=== PATIENT | male | born 1970 | race Two or more races ===

== ENCOUNTER 2023-05-27 13:35 | Inpatient (IN) ==
--- NOTE | 2023-05-27 14:00 | ED Triage Note ---
Date of Service May 27, 2023 History of Present Illness This patient was briefly evaluated while in triage. An abbreviated physical exam was performed. This patient is a 52-year-old Male who presents to the ED for evaluation of abd pain. Started saturday. Recent ct scan of abd/pelvis x 2. Tx for diverticulitis now. Physical Exam GENERAL: 52 year old male. In no acute distress. SKIN: No lesions or rashes. HEART: Regular rate and rhythm. LUNGS: Clear to auscultation. ABDOMEN: Bowel sounds normoactive. No guarding or rigidity. Lower abd ttp noted. MUSCULOSKELETAL: No deformities to inspection of the extremities. PSYCH: Patient is pleasant and answers all questions appropriately. Initial orders for labs and / or imaging were placed and patient was placed in the waiting area until a bed is available. Please see further documentation for the full ED course.
--- NOTE | 2023-05-27 15:41 | XRay Report ---
KUB CLINICAL HISTORY: Generalized abdominal pain. FINDINGS: 2 AP supine abdominal radiographs are obtained. No prior studies are available for comparis on at the time of dictation. Cholecystectomy clips are seen in the right upper quadrant. There is a n onobstructed abdominal bowel gas pattern. No evidence of intraperitoneal free air is seen on these [place] images. There are no abnormal abdominal calcifications. Coarse calcifications are noted in the p rostate. The bony structures appear intact. IMPRESSION: No acute abnormality is identified. Electronically signed by: Ricco Ott M.D. 05/27/2023 3:40 PM
[2023-05-27 15:47] LABS: Basophils # (auto) 0.04 K/uL (0-0.2); Basophils % (auto) 0.7 %; Eosinophils # (auto) 0.18 K/uL (0-0.50); Eosinophils % (auto) 3.3 %; Hematocrit (blood only) 41.8 % (42.0-52.0); Hemoglobin 15.3 g/dl (14.0-18.0); Immature Granulocytes # (auto) 0.01 K/uL (0.01-0.20); Immature Granulocytes % (auto) 0.2 %; Lymphocytes # (auto) 2.23 K/uL (1.2-3.4); Lymphocytes % (auto) 40.9 %; Mean Corpuscular Hemoglobin 31.8 pg (25.0-34.0); Mean Corpuscular Hgb Conc 36.6 g/dL (32.0-36.0); Mean Corpuscular Volume 86.9 fL (80.0-100.0); Mean Platelet Volume 10.1 fL (9.4-12.4); Monocytes % (auto) 12.8 %; Neutrophils # (auto) 2.29 K/uL (1.40-6.50); Neutrophils % (auto) 42.1 %; Platelet Count 178 K/uL (130-400); RDW Coefficient of Variation 11.5 % (11.5-14.5); RDW Standard Deviation 36.1 fL (36.4-46.3); Red Blood Count 4.81 M/uL (4.70-6.10); White Blood Count 5.45 K/ul (4.8-10.8)
[2023-05-27 16:07] LABS: Albumin Globulin Ratio 1.7 (0.9-2); BUN Creatinine Ratio 10.6 (10-20); Bilirubin,Total 1.3 mg/dl (0.2-1.0); Calcium 9.6 mg/dl (8.6-10.3); Creatinine Clr Calc Pharmacy 98.3 ml/min; Est GFR (African American) 109.1 ml/min; Est GFR (Non-African American) 94.2 ml/min
--- NOTE | 2023-05-27 19:42 | Emergency Department Note ---
Impression & Plan Acute diverticulitis ED Provider Note HISTORY OF PRESENT ILLNESS: Patient is a 52-year-old male presenting with suprapubic and left lower quadrant abdominal pain. Patient reports pain has been ongoing and intermittent for the last 6 months. He was diagnosed with diverticulitis twice in that timeframe and also diagnosed with C. difficile. He reports he is on day 7 of his second course of Augmentin. He states that 3 days ago he developed subjective fevers and chills at home and significantly worsening abdominal pain. He denies any nausea. Reports diarrhea for the last 6 months. Denies any dysuria or hematuria. Denies any nausea or vomiting. ROS: as above PHYSICAL EXAM: Constitutional: Patient appears in no acute distress. HENT: Head: Normocephalic and atraumatic. Eyes: EOMI, PERRL Mouth/Throat: Mucous membranes moist. Neck: Trachea midline. Neck supple. Cardiovascular: RRR, No murmurs, rubs or gallops. Intact distal pulses. Pulmonary/Chest: No respiratory distress. Breath sounds clear and equal bilaterally. No wheezes or rales. Abdominal: Abdomen soft, no rebound or guarding. Suprapubic and left lower quadrant tenderness to palpation Musculoskeletal: No edema, tenderness or deformity noted. Skin: Warm and dry. No rash, erythema, pallor or cyanosis Psychiatric: Appropriate mood and affect for situation. Neurological: Alert and keenly responsive. CN II-XII grossly intact, moving all extremities equally and fully. MDM: - Vitals signs stable. - History obtained via patient. Patient presents with suprapubic and left lower quadrant abdominal pain. Patient reports symptoms have been ongoing and intermittent for the last 6 months. He has been diagnosed with acute diverticulitis twice in that timeframe and also diagnosed with C. difficile. He reports he is currently on day 7 of his second course of Augmentin for diverticulitis. He reports 3 days ago he developed subjective fevers and chills at home and developed significantly worsening abdominal pain that is continued over the last 3 days. He reports diarrhea for the last 6 months. Denies any nausea or vomiting - Chronic conditions affecting care: HTN; recurrent diverticulitis - Differential diagnoses include, but are not limited to: diverticulitis; ureteral calculi; UTI; electrolyte abnormality - Order placed for continuous cardiac monitoring. At this time, monitor showed rate of 62 bpm with normal sinus rhythm, per my interpretation. - External medical records reviewed. - Laboratory workup interpreted by myself showed normal WBC; stable electrolytes; normal procalcitonin - CT abdomen/pelvis with IV contrast showed acute diverticulitis - KUB obtained via triage protocols was negative for acute pathology. - Patient has been on oral antibiotics for the last 7 days and still having evidence of diverticulitis, he likely has failed outpatient antibiotic therapy at this time - 1L NS, IV cipro and flagly ordered. - Discussion was had with social service technician about patient's need for admission for observation - Hospitalist, Dr. Mcclure, consulted for admission - [facility] and [facility]. ASSESSMENT AND PLAN: Diagnosis: acute diverticulitis Plan: admit Past Med/Surg History Medical History C. difficile diarrhea Diverticulitis Fatty liver GERD (gastroesophageal reflux disease) Hearing loss Hepatic steatosis HTN (hypertension) Thyroid nodule Surgical History History of rectal polypectomy Hx of cholecystectomy Hx of tonsillectomy S/P rotator cuff repair Family History Denies family history of Crohn's disease Colorectal cancer Ulcerative colitis Social History (Updated 05/20/23 @ 13:36 by MARCIAL Raines) Smoking Status: Never smoker Do You Dip or Chew Tobacco: No; Hx Alcohol Use: No Hx Substance Use: No Preferred Language: Nepalese Communication Ability: Effective Visual Impairment: No Limitations Hearing Ability: Normal marital status: Feels Safe at Home: Yes Allergies Allergies Allergy/AdvReac Type Severity Reaction Status Date / Time No Known Allergies Allergy Verified 05/20/23 08:52 Home Meds Home Medications Medication Instructions Recorded Confirmed bisoprolol fumarate 5 mg tablet 5 mg PO DAILY 05/16/23 05/27/23 lisinopril 10 mg tablet 10 mg PO DAILY 05/16/23 05/27/23 Results & Data (ED) Vital Signs Vital Signs - 24 hr 05/27/23 13:52 05/27/23 20:15 Temperature 36.4 C L Temperature Source Temporal Artery Scan Pulse Rate 61 Pulse Rate [Apical] 60 Pulse Rhythm Regular Respiratory Rate 20 16 Respiratory Effort / Characteristics Non-Labored Spontaneous Respiratory Depth Normal Blood Pressure 120/86 Blood Pressure [Right Arm] 159/92 H Blood Pressure Mean 97 Blood Pressure Mean [Right Arm] 114 Pulse Oximetry 98 96 Oxygen Delivery Method Room Air Sepsis Recent Fever Within 48 Hours No Sepsis New/Unexplained Change in Mental Status No Sepsis Action Taken by Nursing No Action Required Laboratory Data 05/27/23 13:57 05/27/23 13:57 Lab Results 05/27/23 05/27/23 05/27/23 Range/Units 13:57 13:57 13:57 WBC 5.45 (4.8-10.8) K/ul RBC 4.81 (4.70-6.10) M/uL Hgb 15.3 (14.0-18.0) g/dl Hct 41.8 L (42.0-52.0) % MCV 86.9 (80.0-100.0) fL MCH 31.8 (25.0-34.0) pg MCHC 36.6 H (32.0-36.0) g/dL RDW Std Deviation 36.1 L (36.4-46.3) fL RDW Coeff of Meri 11.5 (11.5-14.5) % Plt Count 178 (130-400) K/uL MPV 10.1 (9.4-12.4) fL Immature Gran % (Auto) 0.2 % Neut % (Auto) 42.1 % Lymph % (Auto) 40.9 % Bound[place] % (Auto) 12.8 % Eos % (Auto) 3.3 % Baso % (Auto) 0.7 % Neut # (Auto) 2.29 (1.40-6.50) K/uL Lymph # (Auto) 2.23 (1.2-3.4) K/uL [place] # (Auto) 0.70 H (0.11-0.59) K/uL Eos # (Auto) 0.18 (0-0.50) K/uL Baso # (Auto) 0.04 (0-0.2) K/uL Immature Gran # (Auto) 0.01 (0.01-0.20) K/uL Sodium 138 (136-145) mmol/L Potassium 4.0 (3.5-5.1) mmol/L Chloride 104 (98-107) mmol/L Carbon Dioxide 26 (21-32) mmol/L Anion Gap 8 (3-11) BUN 10 (6-23) mg/dl Creatinine 0.94 (0.6-1.4) mg/dl Est Cr Clr Drug Dosing 98.3 ml/min Est GFR ( Amer) 109.1 ml/min Est GFR (Non-Af Amer) 94.2 ml/min BUN/Creatinine Ratio 10.6 (10-20) Glucose 85 (70-99(Fasting)) mg/dl Lactate 1.3 (0.4-2.0) mmol/L Calcium 9.6 (8.6-10.3) mg/dl Total Bilirubin 1.3 H (0.2-1.0) mg/dl AST 34 (13-39) U/L ALT 64 H (7-52) U/L Alkaline Phosphatase 30 L (34-104) U/L Total Protein 8.0 (6.0-8.3) gm/dl Albumin 5.0 (3.4-5.0) gm/dl Globulin 3.0 (2.5-4.0) gm/dl Albumin/Globulin Ratio 1.7 (0.9-2) Lipase 72 (11-82) U/L Procalcitonin (0-0.5) ng/ml 05/27/23 Range/Units 13:57 WBC (4.8-10.8) K/ul RBC (4.70-6.10) M/uL Hgb (14.0-18.0) g/dl Hct (42.0-52.0) % MCV (80.0-100.0) fL MCH (25.0-34.0) pg MCHC (32.0-36.0) g/dL RDW Std Deviation (36.4-46.3) fL RDW Coeff of Meri (11.5-14.5) % Plt Count (130-400) K/uL MPV (9.4-12.4) fL Immature Gran % (Auto) % Neut % (Auto) % Lymph % (Auto) % [place] % (Auto) % Eos % (Auto) % Baso % (Auto) % Neut # (Auto) (1.40-6.50) K/uL Lymph # (Auto) (1.2-3.4) K/uL [place] # (Auto) (0.11-0.59) K/uL Eos # (Auto) (0-0.50) K/uL Baso # (Auto) (0-0.2) K/uL Immature Gran # (Auto) (0.01-0.20) K/uL Sodium (136-145) mmol/L Potassium (3.5-5.1) mmol/L Chloride (98-107) mmol/L Carbon Dioxide (21-32) mmol/L Anion Gap (3-11) BUN (6-23) mg/dl Creatinine (0.6-1.4) mg/dl Est Cr Clr Drug Dosing ml/min Est GFR ( Amer) ml/min Est GFR (Non-Af Amer) ml/min BUN/Creatinine Ratio (10-20) Glucose (70-99(Fasting)) mg/dl Lactate (0.4-2.0) mmol/L Calcium (8.6-10.3) mg/dl Total Bilirubin (0.2-1.0) mg/dl AST (13-39) U/L ALT (7-52) U/L Alkaline Phosphatase (34-104) U/L Total Protein (6.0-8.3) gm/dl Albumin (3.4-5.0) gm/dl Globulin (2.5-4.0) gm/dl Albumin/Globulin Ratio (0.9-2) Lipase (11-82) U/L Procalcitonin 0.20 (0-0.5) ng/ml Administered Medications Discontinued Medications Ioversol (Optiray 320 100ml) 93 ml IV ONCE ONE Stop: 05/27/23 19:50 Last Admin: 05/27/23 19:50 Dose: 93 ml Documented By: CHIVO Imaging Data Radiologist's Impression: KUB X-Ray 05/27/23 13:57 KUB CLINICAL HISTORY: Generalized abdominal pain. FINDINGS: 2 AP supine abdominal radiographs are obtained. No prior studies are available for comparison at the time of dictation. Cholecystectomy clips are seen in the right upper quadrant. There is a nonobstructed abdominal bowel gas pattern. No evidence of intraperitoneal free air is seen on these supine images. There are no abnormal abdominal calcifications. Coarse calcifications are noted in the prostate. The bony structures appear intact. IMPRESSION: No acute abnormality is identified. Electronically signed by: Ricco Ott M.D. 05/27/2023 3:40 PM Abdomen/Pelvis CT 05/27/23 17:59 Exam(s): CT ABDOMEN + PELVIS With Contrast IV Amt: 93ml optiray 320 EXAM: CT Abdomen and Pelvis With Intravenous Contrast CLINICAL HISTORY: Reason for exam: LLQ abdominal pain. TECHNIQUE: Axial computed tomography images of the abdomen and pelvis with intravenous contrast. CTDI is 24.65 mGy and DLP is 1313.85 mGy-cm. Automated exposure control was utilized for the study. A dose lowering technique was utilized adhering to the principles of ALARA. CONTRAST: Patient received 93ml optiray 320 of IV contrast COMPARISON: None. FINDINGS: Lung bases: Unremarkable. No mass. No consolidation. ABDOMEN: Liver: Hepatic steatosis. Hypodensity in the caudate lobe of the liver likely represents a cyst. Gallbladder and bile ducts: Cholecystectomy. No ductal dilation. Pancreas: Unremarkable. No mass. No ductal dilation. Spleen: Unremarkable. No splenomegaly. Adrenals: Unremarkable. No mass. Kidneys and ureters: Unremarkable. No solid mass. No hydronephrosis. Stomach and bowel: Acute diverticulitis of the sigmoid colon. Fluid- filled colon. No obstruction. PELVIS: Appendix: No findings to suggest acute appendicitis. Bladder: Unremarkable. No mass. Reproductive: Enlarged prostate gland. ABDOMEN and PELVIS: Intraperitoneal space: Unremarkable. No free air. No significant fluid collection. Bones/joints: Congenitally short pedicles and superimposed degenerative change of the spine. No acute fracture. No dislocation. Soft tissues: Fat-containing right inguinal hernia. Vasculature: Atherosclerotic calcification of the abdominal aorta. No abdominal aortic aneurysm. Lymph nodes: Unremarkable. No enlarged lymph nodes. IMPRESSION: 1. Acute diverticulitis of the sigmoid colon. No perforation or abscess. 2. Hepatic steatosis. Electronically signed by: Julian López MD 05/27/23 20:16 PM Discharge Plan Visit Data Chief Complaint: GI Assessment Stated Complaint: GI ISSUE ED Provider: Nemo Lopez Discharge Problem: Acute diverticulitis Forms Stand Alone Forms: [email or web address] Prescriptions Prescriptions: No Action bisoprolol fumarate 5 mg tablet 5 mg PO DAILY lisinopril 10 mg tablet 10 mg PO DAILY Referrals Referrals: Tess Matthews CRNP [Primary Care Provider] -
[2023-05-27] MEDS ORDERED: OPTIRAY 320 100ml IV ONE (19:49)
--- NOTE | 2023-05-27 20:16 | CT Scan Report ---
Exam(s): CT ABDOMEN + PELVIS With Contrast IV Amt: 93ml optiray 320 EXAM: CT Abdomen and Pelvis With Intravenous Contrast CLINICAL HISTORY: Reason for exam: LLQ abdominal pain. TECHNIQUE: Axial computed tomography images of the abdomen and pelvis with intravenous contrast. CTDI is 24.65 mGy and DLP is 1313.85 mGy-cm. Automated exposure control was utilized for the study. A dose lowering technique was utilized adhering to the principles of ALARA. CONTRAST: Patient received 93ml optiray 320 of IV contrast COMPARISON: None. FINDINGS: Lung bases: Unremarkable. No mass. No consolidation. ABDOMEN: Liver: Hepatic steatosis. Hypodensity in the caudate lobe of the liver likely represents a cyst. Gallbladder and bile ducts: Cholecystectomy. No ductal dilation. Pancreas: Unremarkable. No mass. No ductal dilation. Spleen: Unremarkable. No splenomegaly. Adrenals: Unremarkable. No mass. Kidneys and ureters: Unremarkable. No solid mass. No hydronephrosis. Stomach and bowel: Acute diverticulitis of the sigmoid colon. Fluid- filled colon. No obstruction. PELVIS: Appendix: No findings to suggest acute appendicitis. Bladder: Unremarkable. No mass. Reproductive: Enlarged prostate gland. ABDOMEN and PELVIS: Intraperitoneal space: Unremarkable. No free air. No significant fluid collection. Bones/joints: Congenitally short pedicles and superimposed degenerative change of the spine. No acute fracture. No dislocation. Soft tissues: Fat-containing right inguinal hernia. Vasculature: Atherosclerotic calcification of the abdominal aorta. No abdominal aortic aneurysm. Lymph nodes: Unremarkable. No enlarged lymph nodes. IMPRESSION: 1. Acute diverticulitis of the sigmoid colon. No perforation or abscess. 2. Hepatic steatosis. Electronically signed by: Julian López MD 05/27/23 20:16 PM
[2023-05-27] MEDS ORDERED: SODIUM CHLORIDE 0.9% 1000ML 1,000 ML IV ONE (23:03)
[2023-05-27] MEDS ORDERED: metroNIDAZOLE 500 MG/100 ML BAG IV STA (23:04)
[2023-05-27] MEDS ORDERED: CIPROFLOXACIN / D5W 400 MG/200 ML BAG IV STA (23:04)
[2023-05-27] MEDS ORDERED: fentaNYL citrate PF 100 MCG/2 ML VIAL IV STA (23:50)
--- NOTE | 2023-05-28 00:04 | History & Physical Report ---
Date of Service May 27, 2023 Assessment & Plan (1) Acute diverticulitis: Plan: 52-year-old male with past med significant for hypertension, recurrent diverticulitis, history of C. difficile ongoing diarrhea for last 6 months presents with abdominal pain and found to have acute diverticulitis. Recurrent diverticulitis Started IV Cipro and Flagyl IV fluids IV antiemetics and IV pain medications as needed N.p.o. for now Consult surgery in a.m. Diarrhea Going on for last 6 months Had 2 courses of p.o. vancomycin as stool studies showed C Diff gene positive and toxin negative but did not help his diarrhea Stool studies are ordered in the ER we will follow GI consulted Hypertension Continue home medications DVT prophylaxis Lovenox for now Disposition medical floor Full code History of Present Illness Chief Complaint: Abdominal pain and diarrhea Primary Care Provider: MARCIAL Slade 52-year-old male with past med significant for hypertension, recurrent diverticulitis, history of C. difficile ongoing diarrhea for last 6 months presents with abdominal pain and found to have acute diverticulitis. Patient states 2 and half years ago was first diagnosed with diverticulitis and was treated. After that he had a colonoscopy and a polyp was taken out. States again last 6 months developed abdominal pain and diarrhea. Last December had laparoscopic cholecystectomy. Looks like in February he had a course of Cipro and Flagyl for diverticulitis but continued to have diarrhea. Looks like he was found to have C. difficile gene positive but toxin negative and had a couple of course of p.o. vancomycin. But it did not help his diarrhea. Recently in May 20 he saw GI for his abdominal pain and he was started on p.o. Augmentin for possible diverticulitis. He took 1 week of Augmentin so far but still in significant abdominal pain and diarrhea is not getting better so he came here. Denies any fevers. Once in a while he sees some blood in the stools. Normal micturition. No chest pain or shortness of breath. Has nausea. No headache. Somewhat hard of hearing. No runny nose or sore throat or cough. No dysphagia. Currently resting comfortably and hemodynamically stable. Past medical history as mentioned above Past surgical history multiple bilateral shoulder surgeries, tonsillectomy and cholecystectomy Social history denies smoking alcohol or drugs. Family history father had bladder cancer, sister has breast cancer Allergies Allergy/AdvReac Type Severity Reaction Status Date / Time No Known Allergies Allergy Verified 05/20/23 08:52 Home Medications Medication Instructions Recorded Confirmed Type bisoprolol fumarate 5 mg tablet 5 mg PO DAILY 05/16/23 05/27/23 History lisinopril 10 mg tablet 10 mg PO DAILY 05/16/23 05/27/23 History Past Med/Surg History Medical History C. difficile diarrhea Diverticulitis Fatty liver GERD (gastroesophageal reflux disease) Hearing loss Hepatic steatosis HTN (hypertension) Thyroid nodule Surgical History History of rectal polypectomy Hx of cholecystectomy Hx of tonsillectomy S/P rotator cuff repair Family History Denies family history of Crohn's disease Colorectal cancer Ulcerative colitis Social History Smoking Status: Never smoker Do You Dip or Chew Tobacco: No; Hx Alcohol Use: No Hx Substance Use: No Preferred Language: Albanian Communication Ability: Effective Visual Impairment: No Limitations Hearing Ability: Normal marital status: Feels Safe at Home: Yes Review of Systems Review of Systems: All systems reviewed & are unremarkable except as noted in HPI & below Physical Exam Physical Exam: General- Not in distress. Head- atraumatic Eyes- PERRL,. ENT- oropharynx clear Neck- supple, no JVD. Lungs- clear to auscultation no wheezing or crackles Heart- regular rate and rhythm; no murmur, no gallop. Abdomen- normal bowel sounds, soft, tenderness in periumbilical and llq region no guarding or rigidity. no distension. Extremities- no pretibial edema, no erythema seen. Neuro- alert, oriented x 3; PERRL, no facial palsy; no dysarthria;non focal Results & Data Results & Data Vital Signs (Past 12 Hours) Vital Signs Temp Pulse Pulse Resp BP BP Pulse Ox 05/27/23 20:15 60 16 159/92 H 96 05/27/23 13:52 36.4 C L 61 20 120/86 98 O2 Del Method 05/27/23 20:15 05/27/23 13:52 Room Air Diagnostic Findings Laboratory Results WBC 5.45 K/ul (4.8-10.8) 05/27/23 13:57 RBC 4.81 M/uL (4.70-6.10) 05/27/23 13:57 Hgb 15.3 g/dl (14.0-18.0) 05/27/23 13:57 Hct 41.8 % (42.0-52.0) L 05/27/23 13:57 MCV 86.9 fL (80.0-100.0) 05/27/23 13:57 MCH 31.8 pg (25.0-34.0) 05/27/23 13:57 MCHC 36.6 g/dL (32.0-36.0) H 05/27/23 13:57 RDW Std Deviation 36.1 fL (36.4-46.3) L 05/27/23 13:57 RDW Coeff of Meri 11.5 % (11.5-14.5) 05/27/23 13:57 Plt Count 178 K/uL (130-400) 05/27/23 13:57 MPV 10.1 fL (9.4-12.4) 05/27/23 13:57 Immature Gran % (Auto) 0.2 % 05/27/23 13:57 Neut % (Auto) 42.1 % 05/27/23 13:57 Lymph % (Auto) 40.9 % 05/27/23 13:57 [place] % (Auto) 12.8 % 05/27/23 13:57 Eos % (Auto) 3.3 % 05/27/23 13:57 Baso % (Auto) 0.7 % 05/27/23 13:57 Neut # (Auto) 2.29 K/uL (1.40-6.50) 05/27/23 13:57 Lymph # (Auto) 2.23 K/uL (1.2-3.4) 05/27/23 13:57 [place] # (Auto) 0.70 K/uL (0.11-0.59) H 05/27/23 13:57 Eos # (Auto) 0.18 K/uL (0-0.50) 05/27/23 13:57 Baso # (Auto) 0.04 K/uL (0-0.2) 05/27/23 13:57 Immature Gran # (Auto) 0.01 K/uL (0.01-0.20) 05/27/23 13:57 Sodium 138 mmol/L (136-145) 05/27/23 13:57 Potassium 4.0 mmol/L (3.5-5.1) 05/27/23 13:57 Chloride 104 mmol/L (98-107) 05/27/23 13:57 Carbon Dioxide 26 mmol/L (21-32) 05/27/23 13:57 Anion Gap 8 (3-11) 05/27/23 13:57 BUN 10 mg/dl (6-23) 05/27/23 13:57 Creatinine 0.94 mg/dl (0.6-1.4) 05/27/23 13:57 Est Cr Clr Drug Dosing 98.3 ml/min 05/27/23 13:57 Est GFR ( Amer) 109.1 ml/min 05/27/23 13:57 Est GFR (Non-Af Amer) 94.2 ml/min 05/27/23 13:57 BUN/Creatinine Ratio 10.6 (10-20) 05/27/23 13:57 Glucose 85 mg/dl (70-99(Fasting)) 05/27/23 13:57 Lactate 1.3 mmol/L (0.4-2.0) 05/27/23 13:57 Calcium 9.6 mg/dl (8.6-10.3) 05/27/23 13:57 Total Bilirubin 1.3 mg/dl (0.2-1.0) H 05/27/23 13:57 AST 34 U/L (13-39) 05/27/23 13:57 ALT 64 U/L (7-52) H 05/27/23 13:57 Alkaline Phosphatase 30 U/L (34-104) L 05/27/23 13:57 Total Protein 8.0 gm/dl (6.0-8.3) 05/27/23 13:57 Albumin 5.0 gm/dl (3.4-5.0) 05/27/23 13:57 Globulin 3.0 gm/dl (2.5-4.0) 05/27/23 13:57 Albumin/Globulin Ratio 1.7 (0.9-2) 05/27/23 13:57 Lipase 72 U/L (11-82) 05/27/23 13:57 Procalcitonin 0.20 ng/ml (0-0.5) 05/27/23 13:57 Impressions KUB X-Ray 05/27/23 13:57 KUB CLINICAL HISTORY: Generalized abdominal pain. FINDINGS: 2 AP supine abdominal radiographs are obtained. No prior studies are available for comparison at the time of dictation. Cholecystectomy clips are seen in the right upper quadrant. There is a nonobstructed abdominal bowel gas pattern. No evidence of intraperitoneal free air is seen on these supine images. There are no abnormal abdominal calcifications. Coarse calcifications are noted in the prostate. The bony structures appear intact. IMPRESSION: No acute abnormality is identified. Electronically signed by: Ricco Ott M.D. 05/27/2023 3:40 PM Abdomen/Pelvis CT 05/27/23 17:59 Exam(s): CT ABDOMEN + PELVIS With Contrast IV Amt: 93ml optiray 320 EXAM: CT Abdomen and Pelvis With Intravenous Contrast CLINICAL HISTORY: Reason for exam: LLQ abdominal pain. TECHNIQUE: Axial computed tomography images of the abdomen and pelvis with intravenous contrast. CTDI is 24.65 mGy and DLP is 1313.85 mGy-cm. Automated exposure control was utilized for the study. A dose lowering technique was utilized adhering to the principles of ALARA. CONTRAST: Patient received 93ml optiray 320 of IV contrast COMPARISON: None. FINDINGS: Lung bases: Unremarkable. No mass. No consolidation. ABDOMEN: Liver: Hepatic steatosis. Hypodensity in the caudate lobe of the liver likely represents a cyst. Gallbladder and bile ducts: Cholecystectomy. No ductal dilation. Pancreas: Unremarkable. No mass. No ductal dilation. Spleen: Unremarkable. No splenomegaly. Adrenals: Unremarkable. No mass. Kidneys and ureters: Unremarkable. No solid mass. No hydronephrosis. Stomach and bowel: Acute diverticulitis of the sigmoid colon. Fluid- filled colon. No obstruction. PELVIS: Appendix: No findings to suggest acute appendicitis. Bladder: Unremarkable. No mass. Reproductive: Enlarged prostate gland. ABDOMEN and PELVIS: Intraperitoneal space: Unremarkable. No free air. No significant fluid collection. Bones/joints: Congenitally short pedicles and superimposed degenerative change of the spine. No acute fracture. No dislocation. Soft tissues: Fat-containing right inguinal hernia. Vasculature: Atherosclerotic calcification of the abdominal aorta. No abdominal aortic aneurysm. Lymph nodes: Unremarkable. No enlarged lymph nodes. IMPRESSION: 1. Acute diverticulitis of the sigmoid colon. No perforation or abscess. 2. Hepatic steatosis. Electronically signed by: Julian López MD 05/27/23 20:16 PM Code Status & VTE Plan VTE Prophylaxis Plan VTE Prophylaxis will be ordered: Yes
--- NOTE | 2023-05-28 00:35 | Surgery Consultation ---
Date of Consultation May 28, 2023 Assessment & Plan (1) Acute diverticulitis: Patient has been admitted on the hospitalist service. We recommend proceeding as follows: Provide analgesics Provide antiemetics Implement n.p.o. status Provide IV fluid for hydration Antibiotics have been initiated in the form of Cipro and Flagyl. This should continue Follow serial labs Had a lengthy discussion with the patient. At the present time he is nontoxic-appearing. He is normotensive without tachycardia or fever. He also does not have any leukocytosis or evidence of acute kidney injury. There is no evidence of perforation or abscess on his CAT scan. Therefore do not feel he requires any type of emergent operation. I did discuss with the patient that if he would have clinical deterioration necessitating emergency operation this would likely necessitate a colostomy. I also discussed with the patient that if he would require any type of elective surgery would be preferable for patient to have an up-to-date colonoscopy as well as an appropriate bowel prep before any surgical intervention is undertaken. If patient fails to show any clinical improvement in the next several days consideration can be given to repeating a CT scan of his abdomen and pelvis Additional recommendations were forthcoming based on his clinical course as unfolds Supervising Physician Co-Signing Physician Notes I have seen and examined this patient and I agree with this plan. History of Present Illness Reason for Consultation: Diverticulitis History of Present Illness This is a 52-year-old male who has a history of recurrent diverticulitis. Patient says that he was first diagnosed with this problem in 2020. Patient said that he was seen in the emergency department but did not require inpatient admission and was treated with antibiotics. Following this episode the patient did undergo a colonoscopy where the patient was told that they removed a polyp. He had an additional flare of diverticulitis in 2021 again being seen in the emergency department but not requiring hospitalization. The patient had another episode of diverticulitis in January 2023 that was treated with antibiotics. He said he improved but continued to have some GI issues and he eventually had his gallbladder taken out he believes in February of this year. He subsequent developed C. difficile infection that was treated with 2 courses of vancomycin. Patient again began having abdominal pain approximately 1 week ago and he was seen by [facility] physician gastroenterology. It was felt that the patient was again suffering from diverticulitis with the patient was treated with antibiotics in the form of oral Augmentin. Plans were tentatively put in place for patient undergo colonoscopy in approximately 6 weeks. Patient does note that he has been trying to adjust his diet eating mostly soups. Despite being treated with antibiotics he continues to have abdominal pain. He notes that for approximately the past 4 days he has had worsening abdominal pain. He reports nausea without vomiting. He has not had any fevers, shakes, or chills. He does note that the pain is across his lower abdomen greatest in the left lower quadrant. He does not note any radiation of the pain and he denies any modifying factors. Patient has had labs and imaging which independent reviewed. A KUB was performed that showed no acute abnormalities identified. Patient also underwent a CT scan of the abdomen and pelvis. This showed the patient had acute diverticulitis of the sigmoid colon. There is no evidence of perforation or abscess on the study. Labs include a CBC her white blood cell count and hemoglobin were normal. The hematocrit was slightly low at 41.8. Platelet count was noted to be normal. Chemistry profile showed sodium, potassium, BUN, creatinine were normal. Lactic acid level was nonelevated. Patient did have slight elevation of the total bilirubin at 1.3. His ALT and alkaline phosphatase were also slightly elevated at 64 and 30 respectively. His AST was noted to be nonelevated. Patient's lipase was nonelevated and procalcitonin was nonelevated. At the time of my interview the patient was resting comfortably in bed and he was in no distress Allergies Allergy/AdvReac Type Severity Reaction Status Date / Time No Known Allergies Allergy Verified 05/20/23 08:52 Home Medications Medication Instructions Recorded Confirmed Type bisoprolol fumarate 5 mg tablet 5 mg PO DAILY 05/16/23 05/27/23 History lisinopril 10 mg tablet 10 mg PO DAILY 05/16/23 05/27/23 History Patient History Medical History C. difficile diarrhea Diverticulitis Fatty liver GERD (gastroesophageal reflux disease) Hearing loss Hepatic steatosis HTN (hypertension) Thyroid nodule Surgical History History of rectal polypectomy Hx of cholecystectomy Hx of tonsillectomy S/P rotator cuff repair Family History Denies family history of Crohn's disease Colorectal cancer Ulcerative colitis Social History Smoking Status: Never smoker Do You Dip or Chew Tobacco: No; Hx Alcohol Use: No Hx Substance Use: No Preferred Language: French Communication Ability: Effective Visual Impairment: No Limitations Hearing Ability: Normal Ux Developer Required: No Beliefs That Will Affect Care: None marital status: Current Living Situation: Spouse Feels Safe at Home: Yes Assistive Devices: None Review of Systems Constitutional: no fever and no chills Ear, Nose, Mouth, Throat: no hearing loss Respiratory: no cough and no dyspnea Cardiovascular: no chest pain Gastrointestinal: as per Subjective / HPI Genitourinary: no dysuria Musculoskeletal: no back pain Integumentary: no rash Neurologic: no localized weakness Physical Exam Constitutional: WD/WN, vitals as above Eyes: no conjunctival abnormality ENMT: Ears: no hearing impairment and no external ear abnormality Mouth: no oropharynx abnormality Neck: trachea midline Respiratory: normal respiratory effort; no respiratory distress and no labored breathing Cardiovascular: Rate/Rhythm: regular rate and regular rhythm Vessels: dorsalis pedis pulses present and radial pulses present Gastrointestinal (Abdomen): Abdomen is soft, nonrigid, nondistended. Bowel sounds are present. There is no rebound tenderness or guarding. The patient did have pain with palpation in the lower abdomen greatest in the suprapubic area and also the left lower quadrant Musculoskeletal: No calf tendernss Skin: no rashes Neurologic: moves all extremities Psychiatric: A+Ox3, euthymic affect Results & Data Vital Signs (Past 12 Hours) Vital Signs Temp Pulse Pulse Resp BP BP Pulse Ox 05/27/23 20:15 60 16 159/92 H 96 05/27/23 13:52 36.4 C L 61 20 120/86 98 O2 Del Method 05/27/23 20:15 05/27/23 13:52 Room Air PG Care Time/CCT Total # of Minutes Spent Total Time Spent with Patient: Total time spent is greater than 50% in coordination of care (as documented) at patient's floor/unit and/or counseling patient: Coding Level of Care Code 65145 IN/OBS CONSULT LVL 5,80M Diagnoses Acute diverticulitis K57.92
[2023-05-28] MEDS ORDERED: ONDANSETRON INJ 2 MG/ML 2 ML VIAL IV PRN (02:20)
[2023-05-28] MEDS ORDERED: ACETAMINOPHEN 325 MG TAB PO PRN (02:20)
[2023-05-28] MEDS ORDERED: HYDROmorphone INJ 0.5 MG/0.5 ML SYR IV PRN (02:20)
[2023-05-28] MEDS: D5W AND 1/2NSS 1,000 ML IV SCH ×2 (03:31→17:16)
[2023-05-28 05:03] LABS: Appearance Urine Clear (Clear); Bilirubin Urine Negative (Negative); Blood Urine Negative (Negative); Color Urine Yellow; Glucose Urine UA Negative (Negative); Ketones Urine 3+ (Negative); Leukocyte Esterase Urine Negative (Negative); Nitrite Urine Negative (Negative); Protein Urine Negative (Negative); Specific Gravity Urine > 1.045 (1.000-1.030); Urobilinogen Urine Negative (Negative); pH Urine 5.5 (4.5-7.5)
[2023-05-28 05:17] LABS: Basophils # (auto) 0.02 K/uL (0-0.2); Basophils % (auto) 0.4 %; Eosinophils % (auto) 4.2 %; Hematocrit (blood only) 37.4 % (42.0-52.0); Hemoglobin 13.8 g/dl (14.0-18.0); Immature Granulocytes # (auto) 0.02 K/uL (0.01-0.20); Immature Granulocytes % (auto) 0.4 %; Lymphocytes # (auto) 2.37 K/uL (1.2-3.4); Lymphocytes % (auto) 49.7 %; Mean Corpuscular Hemoglobin 31.9 pg (25.0-34.0); Mean Corpuscular Hgb Conc 36.9 g/dL (32.0-36.0); Mean Corpuscular Volume 86.4 fL (80.0-100.0); Mean Platelet Volume 10.3 fL (9.4-12.4); Monocytes # (auto) 0.67 K/uL (0.11-0.59); Neutrophils # (auto) 1.49 K/uL (1.40-6.50); Neutrophils % (auto) 31.3 %; Platelet Count 156 K/uL (130-400); RDW Coefficient of Variation 11.2 % (11.5-14.5); RDW Standard Deviation 34.8 fL (36.4-46.3); Red Blood Count 4.33 M/uL (4.70-6.10); White Blood Count 4.77 K/ul (4.8-10.8)
[2023-05-28 05:38] LABS: BUN Creatinine Ratio 15.1 (10-20); Calcium 8.7 mg/dl (8.6-10.3); Creatinine Clr Calc Pharmacy 107.4 ml/min; Est GFR (African American) 117.2 ml/min; Est GFR (Non-African American) 101.1 ml/min
[2023-05-28 06:21] LABS: Adenovirus F 40/41 PCR Not Detected (NotDetected); Astrovirus PCR Not Detected (NotDetected); Campylobacter PCR Not Detected (NotDetected); Cryptosporidium PCR Not Detected (NotDetected); Cyclospora cayetanensis PCR Not Detected (NotDetected); Entamoeba histolytica PCR Not Detected (NotDetected); Enteroaggregative E.coli(EAEC) Not Detected (NotDetected); Enteropathogenic E.coli (EPEC) Not Detected (NotDetected); Enterotoxigenic E.coli (ETEC) Not Detected (NotDetected); Giardia lamblia PCR Not Detected (NotDetected); Plesiomonas shigelloides PCR Not Detected (NotDetected); Rotavirus A PCR Not Detected (NotDetected); Salmonella PCR Not Detected (NotDetected); Sapovirus PCR Not Detected (NotDetected); Shiga-like Toxin E.coli (STEC) Not Detected (NotDetected); Shigella/Enteroinvasive E.coli Not Detected (NotDetected); Vibrio cholerae PCR Not Detected (NotDetected); Vibrio species PCR Not Detected (NotDetected); Yersinia enterocolitica PCR Not Detected (NotDetected)
[2023-05-28 06:25] LABS: Cdiff Toxin B Gene (2yr or >) Positive Cdiff Gene (Neg)
[2023-05-28 06:50] LABS: Cdiff Antigen Positive; Cdiff Toxin A+B Negative Cdiff Toxin (Negative); Norovirus GI/GII PCR DETECTED (NotDetected)
[2023-05-28] MEDS: BISOPROLOL FUMARATE 5 MG TAB PO SCH (08:26)
[2023-05-28] MEDS: metroNIDAZOLE 500 MG/100 ML BAG IV SCH ×3 (08:26→23:56)
[2023-05-28] MEDS: ENOXAPARIN INJ 40 MG/0.4 ML SYR SQ SCH (08:26)
[2023-05-28] MEDS: lisinopril 10 MG TAB PO SCH (08:26)
--- NOTE | 2023-05-28 09:32 | Gastrointestinal Consultation ---
Date of Consultation May 28, 2023 Assessment & Plan (1) Acute diverticulitis: (2) Bile salt-induced diarrhea: Plan Patient with recurrent episodes of diverticulitis over the past 3 years. most recent suspected episode he was doing well on a course of Augmentin up until Saturday of this past week. Stools did return positive for norovirus. Discussed case with Dr. Sorensen. Suspect that recent symptoms were exacerbated by norovirus infection. no active c diff, just a carrier. - continue with IV cipro/flagyl. - supportive care. - proceed with outpatient colonoscopy as planned in the coming weeks. Supervising Physician Co-Signing Physician Notes I saw the patient and agree with the findings as documented by CRISTAL Holguin History of Present Illness Reason for Consultation: recurrent diverticulitis / persistent diarrhea Requesting Physician: Jordan Mcclure MD Attending Physician: Terrance Dangelo MD History of Present Illness Patient is a 52 year old male with history of diverticulitis with first episode around 3 years ago. He feels that over this time he has had about 4 episodes in total. He had a colonoscopy done back in [address] Reed. He had his gallbladder removed in December 2022 and tells me that since this time he has had diarrhea of up to 6 episodes daily. He had been treated for c diff twice over the past 6 months but tells me that he was told he may have been more of a carrier than active infections and he does not feel treatments for c diff made a difference in symptoms of diarrhea. He had been seen in our office with diverticulitis symptoms 05/20 and was empirically treated with augmentin. he tells me that he was doing very well and felt symptoms were improving up until Saturday of this past weekend when he woke up with worsening diarrhea and abdominal pain. He proceeded to the ED for evaluation and had CT scan showing 05/27/23 with diverticulitis of sigmoid colon. He had stool studies done showing positive c diff gene but toxin was negative. he did have norovirus in the stool as well. He was started on cipro/flagyl IV in ED. He tells me that since admission his abdominal pain is somewhat improved. He feels stools have been slowing down since Saturday with 2 bowel movements yesterday and none so far today. he denies any nausea, vomiting, heartburn, dysphagia, rectal bleeding, or melena. Allergies Allergy/AdvReac Type Severity Reaction Status Date / Time No Known Allergies Allergy Verified 05/20/23 08:52 Home Medications Medication Instructions Recorded Confirmed Type bisoprolol fumarate 5 mg tablet 5 mg PO DAILY 05/16/23 05/27/23 History lisinopril 10 mg tablet 10 mg PO DAILY 05/16/23 05/27/23 History Patient History Medical History C. difficile diarrhea Diverticulitis Fatty liver GERD (gastroesophageal reflux disease) Hearing loss Hepatic steatosis HTN (hypertension) Thyroid nodule Surgical History History of rectal polypectomy Hx of cholecystectomy Hx of tonsillectomy S/P rotator cuff repair Family History Denies family history of Crohn's disease Colorectal cancer Ulcerative colitis Social History Smoking Status: Never smoker Do You Dip or Chew Tobacco: No; Hx Alcohol Use: No Hx Substance Use: No Preferred Language: [place] Communication Ability: Effective Visual Impairment: No Limitations Hearing Ability: Normal Tape Cutting Machine Operator Required: No Beliefs That Will Affect Care: None marital status: Current Living Situation: Spouse Feels Safe at Home: Yes Safety Concerns: Feels Safe At This Time Assistive Devices: None Review of Systems Review of Systems: All systems reviewed & are unremarkable except as noted in HPI & below Physical Exam Constitutional: WD/WN, vitals as above Respiratory: normal respiratory effort, lungs clear to auscultation Cardiovascular: RRR, no murmur, no edema Gastrointestinal (Abdomen): mild diffuse tenderness, no guarding, soft, normal bowel sounds. Skin: no rashes, warm and dry Psychiatric: Orientation: alert and oriented x 3 Affect: euthymic affect Results & Data Vital Signs (Past 12 Hours) Vital Signs Pulse Pulse Resp BP BP Pulse Ox O2 Del Method 05/28/23 06:10 49 L 18 96 05/28/23 06:00 64 12 94 05/28/23 06:00 107/71 05/28/23 05:50 51 L 12 96 05/28/23 05:40 50 L 12 96 05/28/23 05:30 47 L 14 96 05/28/23 05:20 54 L 10 L 97 05/28/23 05:10 65 26 H 97 05/28/23 05:00 49 L 1 L 97 05/28/23 05:00 123/83 05/28/23 04:52 73 29 H 05/28/23 04:30 67 15 05/28/23 04:20 51 L 17 96 05/28/23 04:10 65 16 97 05/28/23 04:00 52 L 18 96 05/28/23 04:00 117/74 05/28/23 03:50 49 L 0 L 100 05/28/23 03:40 46 L 0 L 100 05/28/23 03:30 43 L 12 100 05/28/23 03:20 43 L 13 99 05/28/23 03:10 46 L 0 L 99 05/28/23 03:00 55 L 9 L 98 05/28/23 03:00 113/70 05/28/23 02:50 53 L 18 98 05/28/23 02:40 46 L 0 L 99 05/28/23 02:30 45 L 1 L 98 05/28/23 02:20 46 L 7 L 97 05/28/23 02:10 56 L 20 98 05/28/23 02:00 63 19 96 05/28/23 02:00 118/80 05/28/23 01:50 53 L 16 95 05/28/23 01:40 51 L 2 L 95 05/28/23 01:30 48 L 16 96 05/28/23 01:20 49 L 1 L 96 05/28/23 01:10 54 L 16 95 05/28/23 01:00 57 L 14 96 05/28/23 01:00 119/81 05/28/23 00:50 58 L 15 96 05/28/23 00:44 57 L 9 L 96 05/28/23 04:40 48 L 05/28/23 00:40 55 L 05/28/23 01:00 62 19 119/81 97 Room Air 05/28/23 00:00 79 15 138/98 96 05/27/23 22:00 74 17 124/96 96 PG Care Time/CCT Total # of Minutes Spent Total Time Spent with Patient: Total time spent is greater than 50% in coordination of care (as documented) at patient's floor/unit and/or counseling patient: Coding Level of Care Code 96171 OFFICE CONSULT LVL Diagnoses Acute diverticulitis K57.92 Bile salt-induced diarrhea K90.89 Time Spent (min) 44
[2023-05-28] MEDS: CIPROFLOXACIN / D5W 400 MG/200 ML BAG IV SCH (12:40)
--- NOTE | 2023-05-28 17:04 | Hospitalist Progress Note ---
Date of Service May 28, 2023 Assessment & Plan (1) Acute diverticulitis: Plan: 52-year-old male with past med significant for hypertension, recurrent diverticulitis, history of C. difficile ongoing diarrhea for last 6 months presents with abdominal pain and found to have acute diverticulitis. Recurrent diverticulitis-this is the fourth attack Started IV Cipro and Flagyl IV fluids IV antiemetics and IV pain medications as needed Appreciate surgery input and recommendation for conservative management He has been feeling much better Will start clears from tonight Diarrhea Going on for last 6 months Had 2 courses of p.o. vancomycin as stool studies showed C Diff gene positive and toxin negative but did not help his diarrhea Stool studies are ordered in the ER we will follow GI consulted-appreciate input and recommendation Colonoscopy as an outpatient Hypertension Continue home medications DVT prophylaxis Lovenox for now Disposition medical floor Full code Likely discharge tomorrow Admission and Anticipated Discharge Date Admission Date: May 27, 2023 Subjective 05/28/2023 The patient was seen and examined in medical floor He has been feeling much better denies any abdominal pain, distention and still having some diarrhea No fever and no chills Has had diverticulitis before and this is the fourth attack Review of Systems Review of Systems: All systems reviewed and are unremarkable except as noted below Physical Exam Physical Exam: Lying in bed without any acute distress Constitutional: well developed, well nourished and + obese Eyes: PERRL, conjunctivae normal, anicteric sclerae ENMT: external ear and nose normal, oropharynx normal Neck: trachea midline, no thyromegaly Respiratory: no respiratory distress Auscultation: lungs clear to auscultation bilaterally Cardiovascular: Rate/Rhythm: regular rate, regular rhythm and + bradycardic Heart Sounds: normal S1 and normal S2; no murmur Extremities: no edema Gastrointestinal (Abdomen): Inspection/Auscultation: normal bowel sounds; abdomen not distended Percussion/Palpation: abdomen soft; abdomen nontender Musculoskeletal: No acute arthritis involving the joint Neurologic: normal touch/pain/proprioception and moves all extremities; no focal motor deficits Psychiatric: A+Ox3, euthymic affect Lymphatic: no cervical or axillary lymphadenopathy Results & Data Results & Data Vital Signs (Past 12 Hours) Vital Signs Temp Pulse Pulse Pulse Resp BP BP 05/28/23 15:45 36.5 C 49 L 16 136/84 05/28/23 12:46 54 L 17 115/88 05/28/23 10:30 48 L 20 05/28/23 10:20 68 16 05/28/23 10:10 45 L 13 05/28/23 10:00 46 L 16 05/28/23 10:00 111/74 05/28/23 09:50 48 L 20 05/28/23 09:40 50 L 21 05/28/23 09:30 52 L 18 05/28/23 09:20 52 L 22 05/28/23 09:10 58 L 20 05/28/23 09:00 59 L 25 H 05/28/23 09:00 126/82 05/28/23 08:50 54 L 20 05/28/23 08:40 58 L 16 05/28/23 08:30 53 L 17 05/28/23 08:27 130/73 05/28/23 08:27 53 L 10 L 05/28/23 08:20 63 17 05/28/23 08:11 53 L 13 05/28/23 08:01 65 20 05/28/23 08:01 132/90 05/28/23 08:00 52 L 10 L 05/28/23 07:50 53 L 14 05/28/23 07:40 72 23 05/28/23 07:30 50 L 18 05/28/23 07:20 50 L 21 05/28/23 07:10 55 L 13 05/28/23 07:00 52 L 22 05/28/23 07:00 116/74 05/28/23 06:50 52 L 17 05/28/23 06:40 56 L 3 L 05/28/23 06:30 53 L 0 L 05/28/23 06:20 47 L 0 L 05/28/23 06:17 69 20 05/28/23 06:17 107/71 05/28/23 06:10 49 L 18 05/28/23 06:00 64 12 05/28/23 06:00 107/05/28/23 05:50 51 L 12 05/28/23 05:40 50 L 12 05/28/23 05:30 47 L 14 05/28/23 05:20 54 L 10 L 05/28/23 05:10 65 26 H 05/28/23 05:00 49 L 1 L 05/28/23 05:00 123/83 Pulse Ox O2 Del Method 05/28/23 15:45 98 Room Air 05/28/23 12:46 95 Room Air 05/28/23 10:30 94 05/28/23 10:20 05/28/23 10:10 95 05/28/23 10:00 95 05/28/23 10:00 05/28/23 09:50 95 05/28/23 09:40 96 05/28/23 09:30 97 05/28/23 09:20 97 05/28/23 09:10 98 05/28/23 09:00 95 05/28/23 09:00 05/28/23 08:50 97 05/28/23 08:40 96 05/28/23 08:30 96 05/28/23 08:27 05/28/23 08:27 96 05/28/23 08:20 94 05/28/23 08:11 95 05/28/23 08:01 96 05/28/23 08:01 05/28/23 08:00 94 05/28/23 07:50 95 05/28/23 07:40 05/28/23 07:30 05/28/23 07:20 05/28/23 07:10 97 05/28/23 07:00 96 05/28/23 07:00 05/28/23 06:50 99 05/28/23 06:40 98 05/28/23 06:30 98 05/28/23 06:20 96 05/28/23 06:17 94 05/28/23 06:17 05/28/23 06:10 96 05/28/23 06:00 94 05/28/23 06:00 05/28/23 05:50 96 05/28/23 05:40 96 05/28/23 05:30 96 05/28/23 05:20 97 05/28/23 05:10 97 05/28/23 05:00 97 05/28/23 05:00 Laboratory Results Short CBC 05/28/23 Range/Units 04:34 WBC 4.77 L (4.8-10.8) K/ul Hgb 13.8 L (14.0-18.0) g/dl Hct 37.4 L (42.0-52.0) % Plt Count 156 (130-400) K/uL BMP 05/28/23 04:34 Sodium 138 Potassium 4.0 Chloride 106 Carbon Dioxide 24 BUN 13 Creatinine 0.86 Glucose 77 Calcium 8.7 Urine 05/28/23 Range/Units 04:50 Urine Color Yellow Urine Appearance Clear (Clear) Urine pH 5.5 (4.5-7.5) Ur Specific [place] > 1.045 H (1.000-1.030) Urine Protein Negative (Negative) Urine Glucose (UA) Negative (Negative) Medications Administered Current Inpatient Medications Acetaminophen (Acetaminophen 325 Mg Tab) 650 mg PO Q4H PRN PRN Reason: pain/fever Stop: 06/27/23 02:19 Last Admin: 05/28/23 12:40 Dose: 650 mg Bisoprolol Fumarate (Bisoprolol Fumarate 5 Mg Tab) 5 mg PO DAILY ARLINE Stop: 06/27/23 08:59 Last Admin: 05/28/23 08:26 Dose: 5 mg Enoxaparin Sodium (Enoxaparin Inj 40 Mg/0.4 Ml Syr) 40 mg SQ Q24H ARLINE Stop: 06/27/23 07:59 Last Admin: 05/28/23 08:26 Dose: 40 mg Hydromorphone HCl (Hydromorphone Inj 0.5 Mg/0.5 Ml Syr) 0.5 mg IV Q3H PRN PRN Reason: Pain Stop: 06/11/23 02:19 Ciprofloxacin (Cipro / D5w) 400 mg in 200 mls @ 100 mls/hr IV Q12H ARLINE; Protocol Stop: 06/07/23 11:59 Last Infusion: 05/28/23 15:56 Dose: Infused Metronidazole (Flagyl) 500 mg in 100 mls @ 100 mls/hr IV Q8H ARLINE; Protocol Stop: 06/07/23 07:59 Last Admin: 05/28/23 16:00 Dose: 100 mls/hr Dextrose/Sodium Chloride (D5w And 1/2nss) 1,000 mls @ 125 mls/hr IV .Q8H ARLINE Stop: 06/27/23 02:19 Last Infusion: 05/28/23 15:55 Dose: Infused Lisinopril (Lisinopril 10 Mg Tab) 10 mg PO DAILY ARLINE Stop: 06/27/23 08:59 Last Admin: 05/28/23 08:26 Dose: 10 mg Ondansetron HCl (Ondansetron Inj 2 Mg/Ml 2 Ml Vial) 4 mg IV Q6H PRN PRN Reason: Nausea Stop: 06/27/23 02:19
[2023-05-29] MEDS: D5W AND 1/2NSS 1,000 ML IV SCH ×4 (00:11→19:54)
[2023-05-29] MEDS: CIPROFLOXACIN / D5W 400 MG/200 ML BAG IV SCH ×3 (00:55→23:10)
--- NOTE | 2023-05-29 07:41 | Surgery Progress Note ---
Date of Service May 29, 2023 Assessment & Plan (1) Clostridium difficile carrier: (2) Acute diverticulitis: Plan: Patient is improving. Pain continues to be resolved. No acute surgical intervention at this time. May advance diet to full liquids. May heplock IV when tolerating clears well. F/U am labs, replete electrolytes as needed. May continue DVT ppx, encourage ambulation. At discharge will continue to f/u with GI here who has seen him in patient so t hat he may plan for colonoscopy. Admission and Anticipated Discharge Date Admission Date: May 27, 2023 Subjective Patient seen this am. Continues to deny abdominal pain. Denies N/V, chest pains or SOB. Says he had yellow liquid stool after his clear liquid tray at dinner. Passing a small amount of gas. No fevers, chills or abdominal cramping. Results & Data Vital Signs (Past 12 Hours) Vital Signs Temp Pulse Resp BP Pulse Ox O2 Del Method 05/28/23 20:00 Room Air 05/28/23 20:49 36.7 C 49 L 18 133/79 97 Room Air PG Care Time/CCT Total # of Minutes Spent Total Time Spent with Patient: Total time spent is greater than 50% in coordination of care (as documented) at patient's floor/unit and/or counseling patient: Coding Level of Care Code 17287 SUB INP/OBS CARE 10/31MIN Diagnoses Clostridium difficile carrier Z22.1 Acute diverticulitis K57.92
[2023-05-29] MEDS: ENOXAPARIN INJ 40 MG/0.4 ML SYR SQ SCH (07:48)
[2023-05-29 07:52] LABS: Basophils # (auto) 0.01 K/uL (0-0.2); Basophils % (auto) 0.3 %; Eosinophils # (auto) 0.13 K/uL (0-0.50); Eosinophils % (auto) 3.9 %; Hematocrit (blood only) 37.8 % (42.0-52.0); Hemoglobin 14.1 g/dl (14.0-18.0); Immature Granulocytes # (auto) 0.01 K/uL (0.01-0.20); Immature Granulocytes % (auto) 0.3 %; Lymphocytes # (auto) 1.38 K/uL (1.2-3.4); Lymphocytes % (auto) 41.1 %; Mean Corpuscular Hemoglobin 31.8 pg (25.0-34.0); Mean Corpuscular Hgb Conc 37.3 g/dL (32.0-36.0); Mean Corpuscular Volume 85.1 fL (80.0-100.0); Mean Platelet Volume 10.3 fL (9.4-12.4); Monocytes # (auto) 0.37 K/uL (0.11-0.59); Neutrophils # (auto) 1.46 K/uL (1.40-6.50); Neutrophils % (auto) 43.4 %; Platelet Count 176 K/uL (130-400); RDW Coefficient of Variation 11.2 % (11.5-14.5); RDW Standard Deviation 34.6 fL (36.4-46.3); Red Blood Count 4.44 M/uL (4.70-6.10); White Blood Count 3.36 K/ul (4.8-10.8)
[2023-05-29 08:16] LABS: Calcium 8.8 mg/dl (8.6-10.3); Creatinine Clr Calc Pharmacy 107.9 ml/min; Est GFR (African American) 116.6 ml/min; Est GFR (Non-African American) 100.6 ml/min; Potassium 3.9 mmol/L (3.5-5.1)
[2023-05-29] MEDS: lisinopril 10 MG TAB PO SCH (08:42)
[2023-05-29] MEDS: BISOPROLOL FUMARATE 5 MG TAB PO SCH (08:42)
[2023-05-29] MEDS: metroNIDAZOLE 500 MG/100 ML BAG IV SCH ×2 (08:42→16:23)
--- NOTE | 2023-05-29 16:22 | Hospitalist Progress Note ---
Date of Service May 29, 2023 Assessment & Plan (1) Acute diverticulitis: Plan: 52-year-old male with past med significant for hypertension, recurrent diverticulitis, history of C. difficile, ongoing diarrhea for last 6 months presents with abdominal pain and found to have acute diverticulitis. Acute diverticulitis Norovirus diarrhea with possible exacerbation of diverticulitis by norovirus infection Recurrent diverticulitis-this is the fourth attack Stool positive for norovirus, C. difficile gene positive with negative toxin IV Cipro/Flagyl (day 2) Tolerating full liquids, will advance to low fiber for dinner GI and general surgery consulted Diarrhea Going on for last 6 months --patient reports worsening after cholecystectomy Stool positive for norovirus, C. difficile gene positive with negative toxin; previously received 2 courses of p.o. vancomycin Consider Questran after acute diverticulitis Hypertension BP controlled, continue bisoprolol and lisinopril DVT PROPHYLAXIS SQ Lovenox Patient seen in collaboration with Dr. Dangelo. Admission and Anticipated Discharge Date Admission Date: May 27, 2023 Supervising Physician Co-Signing Physician Notes :Attending addendum The patient was seen and examined in medical floor He has been feeling much better without any abdominal symptoms but has had diarrhea Denies any fever and or chills On examination Remains hemodynamically stable Clear chest Heart-S1-S2 negative Abdomen-benign His labs and imaging studies and medications reviewed Has been tolerating liquid diet and will advanced to low fiber diet from tonight Likely discharge tomorrow Agree with assessment and plan as outlined above by Dai Dangelo Subjective Follow-up for diverticulitis. Patient seen and examined. Tolerating full liquid diet. Continues to have diarrhea which has been a chronic issue for the past 6 months. No abdominal pain or nausea. Denies chest pain and shortness of breath. Physical Exam Constitutional: WD/WN, vitals as above no acute distress Respiratory: normal respiratory effort, lungs clear to auscultation Cardiovascular: Rate/Rhythm: regular rate and regular rhythm Vessels: addis l peripheral pulses Extremities: no edema Gastrointestinal (Abdomen): Percussion/Palpation: + abdomen tender (Mild RLQ tenderness) and abdomen soft Skin: no rashes, warm and dry Neurologic: no focal motor deficits Psychiatric: A+Ox3, euthymic affect Results & Data Results & Data Laboratory Results Short CBC 05/29/23 Range/Units 07:15 WBC 3.36 L (4.8-10.8) K/ul Hgb 14.1 (14.0-18.0) g/dl Hct 37.8 L (42.0-52.0) % Plt Count 176 (130-400) K/uL [facility] 05/29/23 07:15 Sodium 140 Potassium 3.9 Chloride 110 H Carbon Dioxide 26 BUN 7 Creatinine 0.87 Glucose 100 H Calcium 8.8
[2023-05-30] MEDS: metroNIDAZOLE 500 MG/100 ML BAG IV SCH ×3 (01:01→16:22)
[2023-05-30] MEDS: D5W AND 1/2NSS 1,000 ML IV SCH ×2 (05:12→12:22)
[2023-05-30] MEDS: ENOXAPARIN INJ 40 MG/0.4 ML SYR SQ SCH (08:24)
[2023-05-30] MEDS: BISOPROLOL FUMARATE 5 MG TAB PO SCH ×2 (08:25)
[2023-05-30] MEDS: lisinopril 10 MG TAB PO SCH (08:25)
[2023-05-30 10:14] LABS: Hematocrit (blood only) 39.7 % (42.0-52.0); Hemoglobin 14.7 g/dl (14.0-18.0); Mean Corpuscular Hemoglobin 31.7 pg (25.0-34.0); Mean Corpuscular Volume 85.6 fL (80.0-100.0); Mean Platelet Volume 10.2 fL (9.4-12.4); Platelet Count 207 K/uL (130-400); RDW Coefficient of Variation 11.4 % (11.5-14.5); RDW Standard Deviation 34.7 fL (36.4-46.3); Red Blood Count 4.64 M/uL (4.70-6.10); White Blood Count 4.01 K/ul (4.8-10.8)
[2023-05-30 10:37] LABS: BUN Creatinine Ratio 5.3 (10-20); Calcium 9.2 mg/dl (8.6-10.3); Creatinine Clr Calc Pharmacy 99.9 ml/min; Est GFR (African American) 109.1 ml/min; Est GFR (Non-African American) 94.2 ml/min; Magnesium 1.9 mg/dl (1.7-2.4); Phosphorus 1.9 mg/dl (2.5-4.9); Potassium 3.8 mmol/L (3.5-5.1)
[2023-05-30] MEDS ORDERED: POTASSIUM PHOS 3 MMOL/1 ML INFUSION IV STA (12:16)
--- NOTE | 2023-05-30 12:17 | Surgery Progress Note ---
Date of Service May 30, 2023 Assessment & Plan (1) Bile salt-induced diarrhea: (2) Acute diverticulitis: Plan: Acute diverticulitis, chronic diarrhea status post gallbladder removal the patient's acute abdominal pain from his diverticular attack has resolved. He has been tolerating a low fiber diet. Hep-Lock IV. Continue antibiotics. Patient may be converted to oral antibiotics. Discharge per medicine on oral antibiotics. The patient will follow-up with gastroenterology who has been on board and has been involved with the care of this patient. The patient will see them for colonoscopy as well as management of postcholecystectomy diarrhea. He may follow-up with surgery as needed. Admission and Anticipated Discharge Date Admission Date: May 27, 2023 Subjective Patient seen and examined this AM. He continues to feel very improved without abdominal pain. Continues with nonbloody diarrhea. He has tolerate and advance ment of his diet and has been tolerating a low fiber diet. Denies nausea, vomiting chest pains or shortness of breath. Physical Exam Constitutional: healthy appearing; not ill appearing, not in distress and not diaphoretic Respiratory: normal respiratory effort; no respiratory distress, no labored breathing and does not use accessory muscles Gastrointestinal (Abdomen): Inspection/Auscultation: abdomen not distended Percussion/Palpation: abdomen soft; abdomen nontender, no guarding and abdomen not rigid Neurologic: moves all extremities and awake; no focal motor deficits, not confused and not obtunded Results & Data Vital Signs (Past 12 Hours) Vital Signs Temp Pulse Resp BP Pulse Ox O2 Del Method 05/30/23 07:00 36.8 C 57 L 16 129/78 98 Room Air PG Care Time/CCT Total # of Minutes Spent Total Time Spent with Patient: Total time spent is greater than 50% in coordination of care (as documented) at patient's floor/unit and/or counseling patient: Coding Level of Care Code 80281 SUB INP/OBS CARE 10/31MIN Diagnoses Bile salt-induced diarrhea K90.89 Acute diverticulitis K57.92
[2023-05-30] MEDS: CIPROFLOXACIN / D5W 400 MG/200 ML BAG IV SCH (12:18)
[2023-05-30] MEDS ORDERED: POTASSIUM PHOSPHATE 21 MMOL in SODIUM CHLORIDE 0.9% 500 ML IV ONE (12:30)
--- NOTE | 2023-05-30 12:36 | Discharge Summary ---
Discharge Summary Date of Service May 30, 2023 Notes For Next Care Provider recurrent diverticulitis in c diff carrier, likely exacerbated by norovirus Medication Changes From Visit Complete Cipro/Flagy course, phos supplementation Admission HPI Per Admitting Provider 52-year-old male with past med significant for hypertension, recurrent diverticulitis, history of C. difficile ongoing diarrhea for last 6 months presents with abdominal pain and found to have acute diverticulitis. Patient states 2 and half years ago was first diagnosed with diverticulitis and was treated. After that he had a colonoscopy and a polyp was taken out. States again last 6 months developed abdominal pain and diarrhea. Last December had laparoscopic cholecystectomy. Looks like in February he had a course of Cipro and Flagyl for diverticulitis but continued to have diarrhea. Looks like he was found to have C. difficile gene positive but toxin negative and had a couple of course of p.o. vancomycin. But it did not help his diarrhea. Recently in May 20 he saw GI for his abdominal pain and he was started on p.o. Augmentin for possible diverticulitis. He took 1 week of Augmentin so far but still in significant abdominal pain and diarrhea is not getting better so he came here. Denies any fevers. Once in a while he sees some blood in the stools. Normal micturition. No chest pain or shortness of breath. Has nausea. No headache. Somewhat hard of hearing. No runny nose or sore throat or cough. No dysphagia. Currently resting comfortably and hemodynamically stable. Past medical history as mentioned above Past surgical history multiple bilateral shoulder surgeries, tonsillectomy and cholecystectomy Social history denies smoking alcohol or drugs. Family history father had bladder cancer, sister has breast cancer Admission Exam Per Admitting Provider General- Not in distress. Head- atraumatic Eyes- PERRL,. ENT- oropharynx clear Neck- supple, no JVD. Lungs- clear to auscultation no wheezing or crackles Heart- regular rate and rhythm; no murmur, no gallop. Abdomen- normal bowel sounds, soft, tenderness in periumbilical and llq region no guarding or rigidity. no distension. Extremities- no pretibial edema, no erythema seen. Neuro- alert, oriented x 3; PERRL, no facial palsy; no dysarthria;non focal Principal Dx & Hospital Course #1 = Principal Diagnosis (1) Acute diverticulitis: (2) Hypophosphatemia: (3) Clostridium difficile carrier: (4) HTN (hypertension): Plan This is a 52-year-old male with past med significant for hypertension, recurrent diverticulitis, history of C. difficile, ongoing diarrhea for last 6 months presents with abdominal pain and found to have acute diverticulitis. Recurrent diverticulitis as this is the fourth occurrence, likely exacerbated by norovirus. C. difficile gene positive with negative toxin, so just a carrier. Tolerated transition to low fiber diet without issue. Continue Cipro/Flagyl course x 10 days total, probiotic. Follow up for outpatient colonoscopy as scheduled. If diarrhea continues, consider addition of Questran after acute diverticulitis. Noted to how low phosphorous so will continue supplementation x 10 days. Follow up with PCP. Hemodynamically stable and pain free at time of discharge home. Discharge Exam Gen: WD/WN, NAD, sitting in bedside chair, A&Ox3 HEENT: Normocephalic, atraumatic, conjunctivae moist, sclerae anicteric, mucous membranes moist Lung: Clear to Auscultation bilaterally, no wheezes/rales/rhonchi Heart: Regular rate, regular rhythm, no murmurs, rubs, or gallops Abdomen: Soft, NT, ND +BS x 4 Extremities: no edema Skin: Warm, no rash Updated Medication List Medication Instructions Recorded Confirmed Type bisoprolol fumarate 5 mg tablet 5 mg PO DAILY 05/16/23 05/27/23 History lisinopril 10 mg tablet 10 mg PO DAILY 05/16/23 05/27/23 History ciprofloxacin HCl 500 mg tablet 500 mg PO Q12H #16 tabs 05/30/23 Rx lactobacillus combo no.11 15 1 cap PO DAILY #14 caps 05/30/23 Rx billion cell sprinkle capsule (Probiotic) metronidazole 500 mg tablet 500 mg PO Q8H #25 tabs 05/30/23 Rx potassium phosphate, monobasic 500 500 mg PO BID #20 tabs 05/30/23 Rx mg soluble tablet Hospital Stay Data Consultations 05/27/23 23:10 ED Decision to Admit Stat 05/28/23 08:00 Consult Gastroenterology Routine Consult General Surgery Routine Diagnostic Imagining Performed 05/27/23 17:59 CT Abd and Pelvis [CT abd pelvis IV con only] Stat Pending Results Patient Have Any Pending Studies at Discharge: No Discharge Instructions Given to Patient (Per Discharging Provider) Patient admitted with recurrent diverticulitis. Stool positive for norovirus, C. difficile gene positive with negative toxin. Continue low fiber diet at time of discharge. Continue antibiotics for a total of 10 days. Continue phosphorus supplementation for 10 days. Continue probiotic for GI health. Follow up with PCP. PENDING TEST RESULTS: None RECOMMENDATIONS FOR FOLLOW-UP: Follow up with PCP as scheduled. Complete antibiotic in its entirety. Continue medication regimen as scheduled aside from changes noted above. OTHER INSTRUCTIONS: Seek medical attention if you have: * temperature above 101 * chest pain or trouble breathing * abdominal pain, nausea, vomiting * diarrhea, dark stools or bloody stools * any unanswered questions or concerns Call 911 if symptoms are severe. Please take good care of yourself. Call if you have any questions or problems. You can reach a [facility] hospitalist on duty at [facility] 24 hours a day by calling [phone]. Total Time Total Time Spent Total Time Spent (In Minutes): 40 Supervising Physician Co-Signing Physician Notes Attending addendum: The patient was seen and examined in the medical floor He has been feeling much better and denies any symptoms No more abdominal pain, nausea or vomiting and no fever and or chills He will be discharged home this afternoon On examination No apparent distress at rest Hemodynamically stable Abdomen-benign and nontender, bowel sound present Extremities-negative for any edema His his labs and medications reviewed Has electrolyte imbalance with hypophosphatemia which will be administered before he leaves the hospital today Diverticulitis-we will finish the antibiotic as an outpatient and GI appointment as an outpatient Agree with assessment plan as outlined above by SONA Baca Dr
[2023-05-30] MEDS ORDERED: POT PHOSPHATE MONOBASIC W/ SOD TAB PO SCH (21:00)
== END 2023-05-30 18:39 | disposition home or self-care (01) | DRG 392 ==
LOC: ED 13:35 → EDINP 23:58 → 3W 05-28 02:20